=== PATIENT | female | born 1960 | race Caucasian/White ===

== ENCOUNTER → 2023-06-30 14:45 | Outpatient (REF) | payer BC, SELFPAY | LOC: WDC 14:45 | PROVIDERS: ATTENDING PHYSICIAN Family Medicine | DX: Z12.31 Encounter for screening mammogram for malignant neoplasm of breast (principal); Z78.0 Asymptomatic menopausal state; Z82.49 Family history of ischemic heart disease and other diseases of the circulatory system | CPT/HCPCS: 77063; 77067; 77080; 93306 ==

== ENCOUNTER → 2023-08-06 06:27 | Day surgery (SDC) | payer BC, SELFPAY | LOC: GI 06:27 | PROVIDERS: ATTENDING PHYSICIAN Internal Medicine Gastroenterology | DX: Z12.11 Encounter for screening for malignant neoplasm of colon (principal); D12.3 Benign neoplasm of transverse colon; K57.30 Diverticulosis of large intestine without perforation or abscess without bleeding; K64.0 First degree hemorrhoids | CPT/HCPCS: 45385; 45380; 88305 ==

== ENCOUNTER → 2023-09-24 10:34 | Outpatient (REF) | payer BC, SELFPAY | LOC: RAD 10:34 | PROVIDERS: ATTENDING PHYSICIAN Internal Medicine Cardiovascular Disease; FAMILY PHYSICIAN Family Medicine | DX: Q27.8 Other specified congenital malformations of peripheral vascular system (principal); Z82.49 Family history of ischemic heart disease and other diseases of the circulatory system | CPT/HCPCS: 71270; Q9967 ==

== ENCOUNTER → 2024-06-09 15:31 | Outpatient (REF) | payer BC, SELFPAY | LOC: MRI 3T 15:31 | PROVIDERS: ATTENDING PHYSICIAN Otolaryngology; FAMILY PHYSICIAN Family Medicine | DX: H90.A21 Sensorineural hearing loss, unilateral, right ear, with restricted hearing on the contralateral side (principal) | CPT/HCPCS: 70553; A9575 ==

== ENCOUNTER → 2024-06-24 08:33 | Outpatient (REF) | payer BC, SELFPAY | LOC: PAVMRI 08:33 | PROVIDERS: ATTENDING PHYSICIAN Nurse Practitioner; FAMILY PHYSICIAN Family Medicine | DX: R90.89 Other abnormal findings on diagnostic imaging of central nervous system (principal) | CPT/HCPCS: 70544 ==

== ENCOUNTER → 2024-07-13 14:02 | Outpatient (REF) | payer BC, SELFPAY | LOC: PAVMRI 14:02 | PROVIDERS: ATTENDING PHYSICIAN Nurse Practitioner; FAMILY PHYSICIAN Family Medicine | DX: G37.9 Demyelinating disease of central nervous system, unspecified (principal) | CPT/HCPCS: 72156; A9575 ==

== ENCOUNTER → 2024-08-01 13:54 | Outpatient (REF) | payer BC, SELFPAY | LOC: PAVMRI 13:54 | PROVIDERS: ATTENDING PHYSICIAN Nurse Practitioner; FAMILY PHYSICIAN Family Medicine | DX: G37.9 Demyelinating disease of central nervous system, unspecified (principal) | CPT/HCPCS: 72157; A9575 ==

== ENCOUNTER 2024-08-02 06:24 | Day surgery (SDC) | payer BC, SELFPAY ==
[2024-07-21 09:01] LABS: Hematocrit 40.5 % (37.0-47.0); Hemoglobin 13.6 g/dL (12.0-16.0); Mean Corp Hgb Conc. 33.6 g/dL (33.0-37.0); Mean Corpuscular Hgb 31.1 pg (27.0-31.0); Mean Corpuscular Volume 92.7 fL (81.0-99.0); Mean Platelet Volume 10.7 fL (7.4-10.4); Platelet Count 261 10^3/uL (130-400); Red Blood Cell Count 4.37 10^6/uL (4.20-5.40); Red Cell Dist. Width 12.3 % (11.5-14.5)
[2024-07-21 09:23] LABS: Blood Urea Nitrogen 16 mg/dl (7-17); Calcium 9.6 mg/dl (8.4-10.2); Carbon Dioxide 28 mmol/L (22-30); Chloride 107 mmol/L (98-107); Glucose 96 mg/dl (70-99); Potassium 4.6 mmol/L (3.5-5.1); Sodium 143 mmol/L (135-145); eGFR > 60.00
[2024-07-21 12:49] VITALS: BMI 39.7
--- NOTE | 2024-07-21 14:22 | PTCARENOTE ---
Patients 07/21 ECG abnormal- reviewed by Dr. Patton- No additional interventions required
[2024-08-02] VITALS (11 sets, daily range): BP systolic 114–154; BP diastolic 69–107; BMI 39.7
[2024-08-02] MEDS: NORMOSOL-R/PLASMALYTE-A 1000 IV (10:38)
[2024-08-02] MEDS: TYLENOL 1000 MG PO (10:38)
[2024-08-02] MEDS: DILAUDID 0.25 MG IV (14:12)
== END 2024-08-02 15:47 | disposition home or self-care (01) ==
LOC: SDS 06:24
PROVIDERS: ATTENDING PHYSICIAN Surgery; FAMILY PHYSICIAN Family Medicine
DX: K42.9 Umbilical hernia without obstruction or gangrene (principal)
CPT/HCPCS: 49591; 80048; 85027; 93005

== ENCOUNTER → 2024-12-11 07:45 | Outpatient (REF) | payer BC, SELFPAY | LOC: RAD 07:45 | PROVIDERS: ATTENDING PHYSICIAN Surgery Vascular Surgery; FAMILY PHYSICIAN Family Medicine | DX: Z13.6 Encounter for screening for cardiovascular disorders (principal) | CPT/HCPCS: 76770 ==

== ENCOUNTER → 2024-12-19 15:54 | Outpatient (REF) | payer BC, SELFPAY | LOC: WDC 15:54 | PROVIDERS: ATTENDING PHYSICIAN Family Medicine | DX: Z12.31 Encounter for screening mammogram for malignant neoplasm of breast (principal) | CPT/HCPCS: 77063; 77067 ==

== ENCOUNTER → 2024-12-22 08:46 | Outpatient (REF) | payer BC, SELFPAY | LOC: WDC 08:46 | PROVIDERS: ATTENDING PHYSICIAN Family Medicine | DX: R92.8 Other abnormal and inconclusive findings on diagnostic imaging of breast (principal) | CPT/HCPCS: 76642 ==

== ENCOUNTER → 2025-01-02 12:30 | Outpatient (REF) | payer BC, SELFPAY | LOC: MRI 3T 12:30 | PROVIDERS: ATTENDING PHYSICIAN Nurse Practitioner; FAMILY PHYSICIAN Family Medicine | DX: R90.89 Other abnormal findings on diagnostic imaging of central nervous system (principal) | CPT/HCPCS: 70553; A9575 ==